=== PATIENT | female | born 1990 | race Caucasian/White ===

== ENCOUNTER → 2016-06-22 | Outpatient (CLI) | payer BC ==
[~2016-06-22] MED LIST: DIGESTIVE ADVA1 EACH PO; FIBER GUMMIES1 EACH PO; PRENATAL 1+1)(P1 TAB PO; PROVENTIL OR V6.7 GM INH; TYLENOL EXTRA500 MG PO; TYLENOL/COD1 TAB PO
[2016-06-22 13:09] LABS: ALBUMIN 3.8 gm/dL (3.5-5.0); ANION GAP 12.7 (10.0-19.0); CALCIUM 9.4 mg/dL (8.5-10.5); CREATININE 1.1 mg/dL (0.5-1.1); POTASSIUM 3.7 mMol/L (3.7-5.1); TOTAL BILIRUBIN 0.4 mg/dL (0.0-1.5); TOTAL PROTEIN 7.4 g/dL (6.0-8.4)
== END | disposition disaster alternative care site (69) ==
LOC: GRAD 12:13
PROVIDERS: Family Medicine
DX: Z08 Encounter for follow-up examination after completed treatment for malignant neoplasm (principal); Z85.038 Personal history of other malignant neoplasm of large intestine; Z98.890 Other specified postprocedural states
CPT/HCPCS: Q9967